=== PATIENT | female | born 1950 | race Caucasian/White ===

== ENCOUNTER → 2017-02-22 | Outpatient (CLI) | payer MEDICARE ==
[~2017-02-22] MED LIST: ATEN25TA PO; LISI1TAB5 PO; POTA10TA11 PO
== END | disposition home or self-care (01) ==
LOC: CFH 09:29
PROVIDERS: ATTEND Student in an Organized Health Care Education/Training Program
DX: Z12.31 Encounter for screening mammogram for malignant neoplasm of breast (principal); Z95.0 Presence of cardiac pacemaker
CPT/HCPCS: 77063; G0202

== ENCOUNTER → 2017-07-04 | Outpatient (CLI) | payer MEDICARE | END | disposition home or self-care (01) | LOC: CVU 10:29 | PROVIDERS: ATTEND Internal Medicine Cardiovascular Disease | DX: I07.1 Rheumatic tricuspid insufficiency (principal); I10 Essential (primary) hypertension; Z95.0 Presence of cardiac pacemaker | CPT/HCPCS: 93306 ==

== ENCOUNTER → 2018-09-08 | Outpatient (CLI) | payer MEDICARE ==
[~2018-09-08] MED LIST changes: +ASPI-496 PO; +CRAN500T2 PO; +IBUP-1623 PO; +PRAV20TA2 PO; +VIT1CAPS42 PO
[2018-09-08 13:39] LABS: BASOPHILS # (AUTO) 0.04 x10^3/uL (0-0.1); BASOPHILS % (AUTO) 1 % (0-1); EOSINOPHILS # (AUTO) 0.61 x10^3/uL (0-0.4); EOSINOPHILS % (AUTO) 11 % (1-7); LYMPHOCYTES # (AUTO) 1.05 x10^3/uL (1-3.4); LYMPHOCYTES % (AUTO) 19 % (22-44); MD NO; MEAN CORPUSCULAR HEMOGLOBIN 30.7 pg (27.0-34.8); MEAN CORPUSCULAR VOLUME 90.3 fL (80-100); MEAN PLATELET VOLUME 8.3 fL (7.4-10.4); MONOCYTES % (AUTO) 6 % (2-9); NEUTROPHILS # (AUTO) 3.46 x10^3/uL (1.8-6.8); NEUTROPHILS % (AUTO) 63 % (42-75); PLATELET COUNT 204 x10^3/uL (130-400); RED BLOOD COUNT 4.75 x10^6/uL (3.82-5.3); RED CELL DISTRIBUTION WIDTH 13.9 % (9.6-15.2)
[2018-09-08 13:42] LABS: MICROSCOPIC AUTO
[2018-09-08 13:45] LABS: CULTURE INDICATED? YES
[2018-09-08 13:49] LABS: ALBUMIN 3.9 g/dL (3.4-5.0); ANION GAP 7 mmol/L (5-15); CALCIUM 9.2 mg/dL (8.5-10.1); CHLORIDE 108 mmol/L (98-107)
[2018-09-08 13:54] LABS: ALANINE AMINOTRANSFERASE 33 U/L (12-78); ALKALINE PHOSPHATASE 76 U/L (45-117); BILIRUBIN,TOTAL 0.6 mg/dL (0.2-1.0); CREATININE 0.67 mg/dL (0.55-1.02); TOTAL PROTEIN 7.2 g/dL (6.4-8.2)
== END | disposition home or self-care (01) ==
LOC: STAR 12:00
PROVIDERS: ATTEND Orthopaedic Surgery
DX: Z01.818 Encounter for other preprocedural examination (principal); M17.0 Bilateral primary osteoarthritis of knee
CPT/HCPCS: 36415; 80053; 81001; 85025; 87081; 87086; 93005

== ENCOUNTER 2018-09-16 05:39 | Inpatient (IN) | payer MEDICARE ==
[~2018-09-16] VITALS: Ht 171.4 cm; Wt 111.4 kg
[2018-09-16] MEDS ORDERED: LACTATED RINGERS 1,000 ML IV SCH (06:12)
[2018-09-16] MEDS ORDERED: CELE400C PO (06:15)
[2018-09-16] MEDS ORDERED: OXYC20TA42 PO (06:15)
[2018-09-16] MEDS ORDERED: TRANEXAMIC ACID 100 MG/ML, 10ML ONE (06:17)
[2018-09-16] MEDS ORDERED: KETOROLAC 60 MG/2 ML ONE (06:17)
[2018-09-16] MEDS ORDERED: ROPIvacaine/PF 0.2%, 20 ML ONE (06:18)
[2018-09-16] MEDS ORDERED: EPINEPHRINE 1 MG/ML, 1ML ONE (06:18)
[2018-09-16] MEDS ORDERED: morphine SULFATE/PF 1 MG/ML, 10ML ONE (06:18)
[2018-09-16] MEDS ORDERED: ACETAMINOPHEN 1,000 MG/100 ML IV IVPB ONE (06:30)
[2018-09-16] MEDS ORDERED: MIDAZOLAM 1 MG/ML, 2ML ONE (06:33)
[2018-09-16] MEDS ORDERED: FENTANYL PF 250 MCG/5ML ONE ×2 (06:33→07:34)
[2018-09-16] MEDS ORDERED: ACETAMINOPHEN 500 MG TABLET ONE (06:46)
[2018-09-16] MEDS ORDERED: HYDROmorphone 2 MG/ML, 1ML IVPush PRN (07:00)
[2018-09-16] MEDS ORDERED: LABETALOL 5MG/ML, 20ML IV PRN (07:00)
[2018-09-16] MEDS ORDERED: ACETAMINOPHEN 500 MG TABLET PO ONE (07:00)
[2018-09-16] MEDS ORDERED: ONDANSETRON 2MG/ML, 2ML IV PRN (07:00)
[2018-09-16] MEDS ORDERED: MEPERIDINE/PF 25MG/0.5ML IVPush PRN (07:00)
[2018-09-16] MEDS ORDERED: OXYcodone 5 MG/5 ML ORAL.SOL UDC PO PRN (07:00)
[2018-09-16] MEDS ORDERED: CEFAZOLIN 1,000 MG ONE (07:04)
[2018-09-16] MEDS ORDERED: DEXAMETHASONE 4 MG/ML, 1ML ONE (07:04)
[2018-09-16] MEDS ORDERED: ROCURONIUM 10 MG/ML,10ML ONE (07:04)
[2018-09-16] MEDS ORDERED: PROPOFOL 10 MG/ML, 20ML ONE (07:04)
[2018-09-16] MEDS ORDERED: ONDANSETRON 2MG/ML, 2ML ONE ×2 (07:04→08:59)
[2018-09-16] MEDS ORDERED: FENTANYL PF 100 MCG/2ML ONE (08:59)
[2018-09-16] MEDS ORDERED: OXYcodone 5 MG/5 ML ORAL.SOL UDC ONE (08:59)
[2018-09-16] MEDS: FENTANYL PF 100 MCG/2ML IV PRN ×4 (09:05→09:40)
[2018-09-16] MEDS ORDERED: ALUMINUM/MAG/SIMETHICONE 30 ML UDC PO PRN (11:30)
[2018-09-16] MEDS ORDERED: ZOLPIDEM 5MG TABLET PO PRN (11:30)
[2018-09-16] MEDS ORDERED: SENNA/DOCUSATE TABLET PO PRN (11:30)
[2018-09-16] MEDS ORDERED: ONDANSETRON 2MG/ML, 2ML IVPush PRN (11:30)
[2018-09-16] MEDS ORDERED: DIPHENHYDRAMINE 25 MG CAPSULE PO PRN (11:30)
[2018-09-16] MEDS ORDERED: MAGNESIUM HYDROXIDE 8%, 30ML UDC PO PRN (11:30)
[2018-09-16] MEDS ORDERED: ACETAMINOPHEN 325 MG TABLET PO PRN (11:30)
[2018-09-16] MEDS ORDERED: BISACODYL 10 MG SUPP PR PRN (11:30)
[2018-09-16] MEDS ORDERED: HYDROcodone/APAP 7.5-325MG/15ML UDC PO PRN (11:30)
[2018-09-16] MEDS: POTASSIUM CHLORIDE 10 MEQ in D5%-0.45% NACL 1,000 ML IV SCH (11:42)
[2018-09-16 12:43] VITALS: BP 117/75
[2018-09-16] MEDS: OXYcodone IR 5MG TABLET PO PRN ×3 (14:35→23:16)
[2018-09-16] MEDS: CEFAZOLIN PMX 1GM/50ML 50 ML IVPB SCH ×2 (15:24→23:16)
[2018-09-16 20:19] VITALS: BP 124/69
[2018-09-16] MEDS: PREGABALIN 75 MG CAPSULE PO SCH (21:00)
[2018-09-16] MEDS: DOCUSATE 100 MG CAPSULE PO SCH (22:09)
[2018-09-17 00:10] VITALS: BP 127/65
[2018-09-17 03:37] VITALS: BP 116/60
[2018-09-17] MEDS: OXYcodone IR 5MG TABLET PO PRN ×2 (05:46→09:53)
[2018-09-17] MEDS ORDERED: ENOXAPARIN 30 MG/0.3 ML SQ SCH (06:00)
[2018-09-17] MEDS ORDERED: ATENOLOL 25 MG TABLET PO SCH (06:00)
[2018-09-17] MEDS: POTASSIUM CHLORIDE 10 MEQ in D5%-0.45% NACL 1,000 ML IV SCH (07:36)
[2018-09-17 07:48] VITALS: BP 110/68
[2018-09-17] MEDS: PREGABALIN 75 MG CAPSULE PO SCH (08:06)
[2018-09-17] MEDS: DOCUSATE 100 MG CAPSULE PO SCH (08:06)
[2018-09-17] MEDS ORDERED: MULTIVITAMINS/MINERALS TABLET PO SCH (09:00)
[2018-09-17] MEDS ORDERED: LISINOPRIL 20 MG TABLET PO SCH (09:00)
[2018-09-17] MEDS ORDERED: HYDROCHLOROTHIAZIDE 12.5 MG CAPSULE PO SCH (09:00)
[2018-09-17] MEDS ORDERED: POTASSIUM CHLORIDE 10 MEQ TABLET.ER PO SCH (09:00)
[2018-09-17] MEDS ORDERED: OXYC-307 PO (09:39)
[2018-09-17] MEDS ORDERED: ASPI-496 PO (09:47)
[2018-09-17] MEDS ORDERED: KETOROLAC 30 MG/1 ML IV SCH (11:30)
== END 2018-09-17 12:49 | disposition home or self-care (01) | DRG 469 ==
LOC: ORIP 05:39 → 4NOR 10:19 → DCLOUNGE 09-17 12:38
PROVIDERS: ADMIT Orthopaedic Surgery; ATTEND Orthopaedic Surgery
PROC: 0SRC0J9 Replacement of Right Knee Joint with Synthetic Substitute, Cemented, Open Approach (ICD-10-PCS; principal; 2018-09-16 07:00)
DX: M17.11 Unilateral primary osteoarthritis, right knee (principal); R53.2 Functional quadriplegia; I48.91 Unspecified atrial fibrillation; Z95.0 Presence of cardiac pacemaker
CPT/HCPCS: 82962; C1713; G0378; J0171; J0690; J1100; J1650; J1885; J2250; J2274; J2405; J2704; J2795; J3010; J3480; C1776; J7120

== ENCOUNTER → 2020-10-15 | Outpatient (CLI) | payer MEDICARE, OTHER ==
[~2020-10-15] MED LIST changes: +CELE400C PO; +LISI1TAB39 PO; -LISI1TAB5 PO; +OMNIPAQUE 350 MG/ML, 100ML BOTTLE ONE; +OXYC-307 PO; +OXYC20TA42 PO
[2020-10-15 13:59] LABS: CREATININE 1.02 mg/dL (0.55-1.02)
== END | disposition home or self-care (01) ==
LOC: RAD 13:15
PROVIDERS: ATTEND Physician Assistant
DX: K76.0 Fatty (change of) liver, not elsewhere classified (principal); J98.11 Atelectasis; N39.0 Urinary tract infection, site not specified; Z90.49 Acquired absence of other specified parts of digestive tract
CPT/HCPCS: 36415; 74178; 82565; Q9967

== ENCOUNTER 2021-05-04 11:03 | Day surgery (SDC) | payer MEDICARE ==
[~2021-05-04] VITALS: Ht 170.2 cm; Wt 130.0 kg
[~2021-05-04 11:03] MED LIST changes: -CRAN500T2 PO; +CRAN500T3 PO; -OMNIPAQUE 350 MG/ML, 100ML BOTTLE ONE; -OXYC-307 PO; +OXYC-380 PO
[2021-05-04] MEDS ORDERED: LISI1TAB20 PO (12:51)
[2021-05-04] MEDS ORDERED: MULT-658 PO (12:51)
[2021-05-04] MEDS ORDERED: CRAN500C PO (12:51)
[2021-05-04] MEDS ORDERED: SODIUM CHLORIDE 0.9% 1,000 ML IV SCH (13:00)
[2021-05-04 13:23] LABS: BASOPHILS % (AUTO) 1 % (0-1); EOSINOPHILS % (AUTO) 13 % (1-7); LYMPHOCYTES % (AUTO) 26 % (22-44); MEAN CORPUSCULAR HEMOGLOBIN 30.4 pg (27.0-34.8); MEAN CORPUSCULAR HGB CONC 33.5 g/dL (32.4-35.8); MEAN PLATELET VOLUME 8.4 fL (7.4-10.4); MONOCYTES % (AUTO) 6 % (2-9); NEUTROPHILS % (AUTO) 54 % (42-75); PLATELET COUNT 159 x10^3/uL (130-400); RED BLOOD COUNT 4.58 x10^6/uL (3.82-5.3); RED CELL DISTRIBUTION WIDTH 13.8 % (9.6-15.2)
[2021-05-04 13:33] LABS: ANION GAP 5 mmol/L (5-15); CALCIUM 9.5 mg/dL (8.5-10.1); CHLORIDE 108 mmol/L (98-107); CREATININE 0.73 mg/dL (0.55-1.02)
[2021-05-04] MEDS ORDERED: CEFAZOLIN PMX 1GM/50ML 50 ML ONE (14:15)
[2021-05-04] MEDS ORDERED: MIDAZOLAM 1 MG/ML, 5ML ONE (14:15)
[2021-05-04] MEDS ORDERED: LIDOCAINE 2%, 20ML ONE (14:15)
[2021-05-04] MEDS ORDERED: CEFAZOLIN 1,000 MG ONE (14:15)
[2021-05-04] MEDS ORDERED: FENTANYL PF 100 MCG/2ML ONE (14:15)
[2021-05-04] MEDS ORDERED: LIDOCAINE 1%, 20ML ONE (14:48)
== END 2021-05-04 16:41 | disposition home or self-care (01) ==
LOC: CACL 11:03
PROVIDERS: ATTEND Internal Medicine Cardiovascular Disease
DX: Z45.010 Encounter for checking and testing of cardiac pacemaker pulse generator [battery] (principal); I49.5 Sick sinus syndrome; I48.0 Paroxysmal atrial fibrillation; I44.2 Atrioventricular block, complete; I10 Essential (primary) hypertension; E78.5 Hyperlipidemia, unspecified; E66.3 Overweight; Z68.41 Body mass index [BMI] 40.0-44.9, adult; Z79.82 Long term (current) use of aspirin; Z79.899 Other long term (current) drug therapy; Z88.8 Allergy status to other drugs, medicaments and biological substances
CPT/HCPCS: 33228; 36415; 80048; 85025; 99156; 99157; C1785; J0690; J2250; J3010